=== PATIENT | female | born 1965 | race Two or more races ===

== ENCOUNTER 2022-10-27 11:00 | Day surgery (SDC) | payer OTHER ==
[~2022-10-27 11:00] MED LIST: SYNTHROID75 MCG PO
== END 2022-10-27 21:15 | disposition home or self-care (01) ==
LOC: CIR.AMB 11:00
PROVIDERS: ATTEND Obstetrics & Gynecology
DX: N95.0 Postmenopausal bleeding (principal); N84.0 Polyp of corpus uteri; R93.89 Abnormal findings on diagnostic imaging of other specified body structures

== ENCOUNTER → 2024-07-15 06:35 | Outpatient (CLI) | payer OTHER ==
[2024-07-15 07:15] LABS: HEMATOCRIT 38.7 % (36.0-45.00); HEMOGLOBIN 12.3 g/dL (12.0-15.00); MEAN CELL VOLUME 78.1 fL (80.00-100.00); MEAN CORPUSCULAR HEMOGLOBIN 24.8 pg (27.00-32.0); MEAN CORPUSCULAR HGB CONC 31.8 g/dl (32.0-36.0); PLATELET COUNT 299 K/uL (150-450); RED BLOOD COUNT 4.96 M/uL (4.00-6.00); RED CELL DISTRIBUTION WIDTH 15.7 % (11.5-14.5)
[2024-07-15 07:25] LABS: URINE APPEARANCE Clear; URINE BILIRRUBIN Negative (NEGATIVE); URINE BLOOD Negative; URINE COLOR Yellow; URINE GLUCOSE Negative (NEGATIVE); URINE KETONE Negative (NEGATIVE); URINE LEUKOCYTE Negative; URINE NITRATE Negative; URINE PROTEIN Negative (NEGATIVE); URINE UROBILINOGEN 0.2 E.U./dl
[2024-07-15 07:31] LABS: URINE BACTERIA 699.2 uL (0.0-1933); URINE EPITHELIAL CELLS 32.9 uL (0.0-38.8); URINE RBC 7.4 uL (0.0-20.8); URINE WBC 3.8 uL (0.0-23.2)
[2024-07-15 07:39] LABS: INR < 0.93
[2024-07-15 08:24] LABS: URINE CAST 0.45 uL (0.0-1.40)
[2024-07-15 08:28] LABS: ALBUMIN 3.5 gm/dL (3.4-5.0); BILIRUBIN TOTAL 0.3 mg/dL (0.3-1.2); CALCIUM 9.5 mg/dL (8.5-10.1); CREATININE SERUM 0.72 mg/dL (0.55-1.02); GFR 83.2; GLOBULINA 3.8 G/DL (2.4-3.5); POTASSIUM 4.35 mEq/L (3.5-5.1); T4 FREE 1.04 NG/ML (0.76-1.46); TOTAL PROTEIN 7.3 gm/dL (6.4-8.2); TSH 3.88 uIU/mL (0.358-3.74)
== END | disposition home or self-care (01) ==
LOC: LAB 06:35
PROVIDERS: ATTEND Obstetrics & Gynecology
DX: R93.5 Abnormal findings on diagnostic imaging of other abdominal regions, including retroperitoneum (principal); Z01.810 Encounter for preprocedural cardiovascular examination; Z01.811 Encounter for preprocedural respiratory examination; D50.8 Other iron deficiency anemias; E03.8 Other specified hypothyroidism; R92.1 Mammographic calcification found on diagnostic imaging of breast; R87.810 Cervical high risk human papillomavirus (HPV) DNA test positive; E28.310 Symptomatic premature menopause; N95.0 Postmenopausal bleeding; L90.0 Lichen sclerosus et atrophicus

== ENCOUNTER 2024-07-19 07:23 | Outpatient (CLI) | payer OTHER | END 2024-07-19 07:34 | disposition home or self-care (01) | LOC: RAD 07:23 | PROVIDERS: ATTEND Obstetrics & Gynecology | DX: R93.5 Abnormal findings on diagnostic imaging of other abdominal regions, including retroperitoneum (principal) ==

== ENCOUNTER 2024-07-22 09:25 | Outpatient (CLI) | payer OTHER | END 2024-07-22 09:28 | disposition home or self-care (01) | LOC: LAB 09:25 | PROVIDERS: ATTEND Internal Medicine | DX: E66.9 Obesity, unspecified (principal); N95.0 Postmenopausal bleeding; R93.5 Abnormal findings on diagnostic imaging of other abdominal regions, including retroperitoneum; Z01.810 Encounter for preprocedural cardiovascular examination; I10 Essential (primary) hypertension ==

== ENCOUNTER 2024-07-25 06:27 | Day surgery (SDC) | payer OTHER ==
[2024-07-25] MEDS ORDERED: CEFAZOLIN SODIUM 1,000 MG VIAL IV ONE (07:45)
[2024-07-25] MEDS ORDERED: POVIDONE-IODINE 118 ML BOTT TOP ONE ×2 (07:45→09:00)
[2024-07-25] MEDS ORDERED: CHLORHEXIDINE GLUCONATE 120 ML BOTTLE TOP ONE (07:45)
[2024-07-25] MEDS ORDERED: MORPHINE SULFATE 4 MG/ML VIAL IV ONE (10:20)
== END 2024-07-25 15:55 | disposition home or self-care (01) ==
LOC: CIR.AMB 06:27
PROVIDERS: ATTEND Obstetrics & Gynecology
DX: N84.0 Polyp of corpus uteri (principal); R93.5 Abnormal findings on diagnostic imaging of other abdominal regions, including retroperitoneum; I10 Essential (primary) hypertension; J45.909 Unspecified asthma, uncomplicated; E03.9 Hypothyroidism, unspecified

== ENCOUNTER 2024-09-21 07:49 | Outpatient (CLI) | payer OTHER ==
[2024-09-21 08:47] LABS: HEMATOCRIT 37.9 % (36.0-45.00); HEMOGLOBIN 12.3 g/dL (12.0-15.00); MEAN CELL VOLUME 77.1 fL (80.00-100.00); MEAN CORPUSCULAR HGB CONC 32.4 g/dl (32.0-36.0); PLATELET COUNT 304 K/uL (150-450); RED BLOOD COUNT 4.91 M/uL (4.00-6.00); RED CELL DISTRIBUTION WIDTH 16.9 % (11.5-14.5)
[2024-09-21 09:29] LABS: ALBUMIN 3.5 gm/dL (3.4-5.0); BILIRUBIN TOTAL 0.25 mg/dL (0.3-1.2); CALCIUM 9.1 mg/dL (8.5-10.1); CHOL HDL RATIO 2.8 (0-5.0); CREATININE SERUM 0.68 mg/dL (0.55-1.02); GFR 88.87; GLOBULINA 3.9 G/DL (2.4-3.5); POTASSIUM 4.4 mEq/L (3.5-5.1); T4 TOTAL 9.51 UG/DL (4.8-13.9); TOTAL PROTEIN 7.4 gm/dL (6.4-8.2); TSH 1.63 uIU/mL (0.358-3.74)
[2024-09-21 09:48] LABS: PH,URINE 6.5 (5.0-8.0); URINE APPEARANCE Cloudy; URINE BILIRRUBIN Negative (NEGATIVE); URINE BLOOD Negative; URINE COLOR Yellow; URINE GLUCOSE Negative (NEGATIVE); URINE KETONE Negative (NEGATIVE); URINE LEUKOCYTE Negative; URINE NITRATE Negative; URINE PROTEIN Negative (NEGATIVE)
[2024-09-21 09:49] LABS: URINE BACTERIA 12.2 uL (0.0-1933); URINE EPITHELIAL CELLS 8.8 uL (0.0-38.8); URINE RBC 11.7 uL (0.0-20.8)
[2024-09-21 10:34] LABS: URINE WBC 1.2 uL (0.0-23.2)
[2024-09-21 10:36] LABS: URINE CRYSTALS NEGATIVE /HPF
[2024-09-23 10:00] LABS: FOLIC ACID 10.16 ng/ml (4.78-20); T3 TOTAL 1.13 ng/ml (0.846-2.02); VITAMIN D3 25 HYDROXY 26.54 ng/ml (30-120)
== END 2024-09-21 07:57 | disposition home or self-care (01) ==
LOC: LAB 07:49
DX: A49.3 Mycoplasma infection, unspecified site (principal)

== ENCOUNTER 2024-12-07 09:53 | Outpatient (CLI) | payer OTHER ==
[2024-12-07 10:34] LABS: HEMATOCRIT 39.4 % (36.0-45.00); HEMOGLOBIN 12.3 g/dL (12.0-15.00); MEAN CELL VOLUME 77.3 fL (80.00-100.00); MEAN CORPUSCULAR HEMOGLOBIN 24.2 pg (27.00-32.0); MEAN CORPUSCULAR HGB CONC 31.3 g/dl (32.0-36.0); PLATELET COUNT 308 K/uL (150-450); RED CELL DISTRIBUTION WIDTH 15.9 % (11.5-14.5)
[2024-12-07 11:14] LABS: ALBUMIN 3.6 gm/dL (3.4-5.0); BILIRUBIN TOTAL 0.53 mg/dL (0.3-1.2); CALCIUM 9.6 mg/dL (8.5-10.1); CHOL HDL RATIO 2.4 (0-5.0); CREATININE SERUM 0.69 mg/dL (0.55-1.02); GFR 87.38; GLOBULINA 3.9 G/DL (2.4-3.5); POTASSIUM 4.28 mEq/L (3.5-5.1); T4 FREE 1.12 NG/ML (0.76-1.46); TOTAL PROTEIN 7.5 gm/dL (6.4-8.2); TSH 1.13 uIU/mL (0.358-3.74)
== END 2024-12-07 10:01 | disposition home or self-care (01) ==
LOC: LAB 09:53
DX: E11.65 Type 2 diabetes mellitus with hyperglycemia (principal); E78.5 Hyperlipidemia, unspecified; I10 Essential (primary) hypertension; E03.8 Other specified hypothyroidism; E24.9 Cushing's syndrome, unspecified

== ENCOUNTER 2025-04-21 07:29 | Outpatient (CLI) | payer OTHER ==
[2025-04-21 08:46] LABS: BASO % 0.6 % (0.1-1.2); EOS # 0.31 (0.04-0.54); EOS % 4.0 % (0.7-7.0); LYMPH # 1.99 (1.18-3.74); LYMPH % 25.5 % (19.3-53.1); MEAN PLATELET VOLUME 10.60 fl (9.4-12.4); MONO # 0.58 (0.24-0.82); MONO % 7.4 % (4.7-12.5); NEUT # 4.84 (1.56-6.13); NEUT % 62.2 % (34.0-71.1); RED CELL DISTRIBUTION WIDTH 16.7 % (11.6-14.4)
[2025-04-21 08:49] LABS: URINE APPEARANCE Clear; URINE BILIRRUBIN Negative (NEGATIVE); URINE BLOOD Negative; URINE COLOR Yellow; URINE GLUCOSE Negative (NEGATIVE); URINE KETONE Negative (NEGATIVE); URINE LEUKOCYTE Negative; URINE NITRATE Negative; URINE PROTEIN Negative (NEGATIVE); URINE UROBILINOGEN 0.2 E.U./dl
[2025-04-21 08:53] LABS: URINE BACTERIA 30.0 uL (0.0-1933); URINE EPITHELIAL CELLS 7.3 uL (0.0-38.8); URINE RBC 7.6 uL (0.0-20.8); URINE WBC 6.1 uL (0.0-23.2)
[2025-04-21 08:57] LABS: URINE CAST 0.43 uL (0.0-1.40)
[2025-04-21 09:38] LABS: ALT/SGPT 37.0 U/L (12-78); AST/SGOT 13.0 U/L (15-37); BILIRUBIN TOTAL 0.49 mg/dL (0.3-1.2); BUN CREA RATIO 30.0 (7.0-25.0); CHOL HDL RATIO 2.4 (0-5.0); CREATININE SERUM 0.67 mg/dL (0.55-1.02); GFR 90.09; GLOBULINA 3.7 G/DL (2.4-3.5); GLUCOSE FASTING 90.0 mg/dL (65-100); HDL 74.0 mg/dl (40-60); LDL 94.0 mg/dl (0-130); OSMOLALITY SERUM 289.0 MOSM/KG (275-295); T3 UPTAKE 34.0 % (30-39); T4 TOTAL 10.45 UG/DL (4.8-13.9); TSH 0.552 uIU/mL (0.358-3.74); VLDL 12.0 (0-39)
[2025-04-21 10:31] LABS: FOLIC ACID 17.29 ng/ml (4.78-20); T3 TOTAL 1.5 ng/ml (0.846-2.02); VITAMIN D3 25 HYDROXY 30.47 ng/ml (30-120)
== END 2025-04-21 07:36 | disposition home or self-care (01) ==
LOC: LAB 07:29
DX: D52.9 Folate deficiency anemia, unspecified (principal); D64.9 Anemia, unspecified; E11.9 Type 2 diabetes mellitus without complications; N39.0 Urinary tract infection, site not specified; E79.2 Myoadenylate deaminase deficiency; E03.9 Hypothyroidism, unspecified; C18.9 Malignant neoplasm of colon, unspecified; R80.9 Proteinuria, unspecified; B96.81 Helicobacter pylori [H. pylori] as the cause of diseases classified elsewhere; E55.9 Vitamin D deficiency, unspecified; D51.9 Vitamin B12 deficiency anemia, unspecified

== ENCOUNTER 2025-04-22 08:05 | Outpatient (CLI) | payer OTHER | END 2025-04-22 08:11 | disposition home or self-care (01) | LOC: LAB 08:05 | DX: D64.9 Anemia, unspecified (principal); E11.9 Type 2 diabetes mellitus without complications; N39.0 Urinary tract infection, site not specified; E79.2 Myoadenylate deaminase deficiency; E03.9 Hypothyroidism, unspecified; C18.9 Malignant neoplasm of colon, unspecified; R80.9 Proteinuria, unspecified; B96.81 Helicobacter pylori [H. pylori] as the cause of diseases classified elsewhere; E55.9 Vitamin D deficiency, unspecified; D51.9 Vitamin B12 deficiency anemia, unspecified ==

== ENCOUNTER 2025-08-26 08:09 | Outpatient (CLI) | payer OTHER | END 2025-08-26 08:14 | disposition home or self-care (01) | LOC: MAMO-SONO 08:09 | DX: N64.4 Mastodynia (principal); Z12.39 Encounter for other screening for malignant neoplasm of breast; E04.9 Nontoxic goiter, unspecified; R10.20 Pelvic and perineal pain unspecified side; R19.07 Generalized intra-abdominal and pelvic swelling, mass and lump ==